=== PATIENT | female | born 1965 | race Caucasian/White ===

== ENCOUNTER 2016-04-24 10:07 | Outpatient (CLI) | payer MEDICAID | END 2016-04-24 10:08 | disposition home or self-care (01) | DX: G47.30 Sleep apnea, unspecified (principal); G47.8 Other sleep disorders; G47.10 Hypersomnia, unspecified; R06.83 Snoring ==

== ENCOUNTER 2016-05-03 21:13 | Outpatient (CLI) | payer MEDICAID | END 2016-05-03 21:14 | disposition home or self-care (01) | DX: G47.33 Obstructive sleep apnea (adult) (pediatric) (principal) ==

== ENCOUNTER 2016-05-30 09:16 | Outpatient (CLI) | payer MEDICAID | END 2016-05-30 09:17 | disposition home or self-care (01) | DX: G47.33 Obstructive sleep apnea (adult) (pediatric) (principal) ==